=== PATIENT | male | born 1985 | race Caucasian/White ===

== ENCOUNTER 2017-03-24 21:38 | Emergency (ER) | payer MEDICARE ==
[~2017-03-24] VITALS: Ht 170.2 cm; Wt 77.6 kg
[2017-03-24 21:40] VITALS: BP 144/76; PULSE 93; RESP 20; TEMP 98; O2SAT 98
--- NOTE | 2017-03-24 22:30 | NUR ---
Patient to ER bed 01 to gown for evaluation. Side rails up.
--- NOTE | 2017-03-24 22:32 | NUR ---
Pt brought by self, A&Ox4, pt c/o sudden Left facial swelling after eating, respirations even and unlabored, denies dental procedures, VS WNL
--- NOTE | 2017-03-24 22:35 | NUR ---
Corine Ricks DENTAL HYGIENE ADMINISTRATIVE ASSISTANT at bedside examining patient
[2017-03-24] MEDS ORDERED: IBUPROFEN 400 MG TABLET PO ONE (23:00)
[2017-03-24 23:09] VITALS: BP 120/76; PULSE 93; RESP 20; TEMP 98; O2SAT 98
--- NOTE | 2017-03-24 23:11 | NUR ---
Patient given written and verbal discharge instructions and verbalizes understanding. ER MD discussed with patient the results and treatment provided. Patient in stable condition. ID arm band removed. Patient educated on pain management and to follow up with PMD. Pain Scale 0/10. Opportunity for questions provided and answered.
== END 2017-03-24 23:09 | disposition home or self-care (01) ==
LOC: SED 21:38
DX: Z00.00 Encounter for general adult medical examination without abnormal findings (principal); R03.0 Elevated blood-pressure reading, without diagnosis of hypertension; F41.9 Anxiety disorder, unspecified
CPT/HCPCS: 99282

== ENCOUNTER 2018-04-26 19:52 | Emergency (ER) | payer OTHER, MEDICARE ==
[~2018-04-26] VITALS: Ht 167.6 cm; Wt 83.0 kg
[2018-04-26 19:59] VITALS: BP_SYST 129
[2018-04-26] MEDS ORDERED: KETOROLAC TROMETHAMINE 30 MG VIAL IM ONE (20:45)
[2018-04-26] MEDS ORDERED: CYCLOBENZAPRINE HCL 10 MG TABLET (FLEXERIL) PO ONE (20:45)
[2018-04-26 21:20] VITALS: BP_SYST 125
== END 2018-04-26 21:20 | disposition home or self-care (01) ==
LOC: SED 19:52
DX: S39.012A Strain of muscle, fascia and tendon of lower back, initial encounter (principal); M25.532 Pain in left wrist; V47.6XXA Car passenger injured in collision with fixed or stationary object in traffic accident, initial encounter; Y93.89 Activity, other specified; Y92.488 Other paved roadways as the place of occurrence of the external cause; Y99.8 Other external cause status
CPT/HCPCS: 73110; 96372; 99284; J1885